=== PATIENT | female | born 1945 | race African-American/Black ===

== ENCOUNTER 2023-02-18 12:23 | Emergency (ER) | payer MEDICARE ==
[~2023-02-18] VITALS: Ht 160 cm; Wt 80.7 kg
[2023-02-18] MEDS ORDERED: ACETAMINOPHEN ES 500 MG TABLET ONE (12:44)
[2023-02-18] MEDS ORDERED: ACETAMINOPHEN ES 500 MG TABLET PO ONE (13:00)
[2023-02-18 15:06] VITALS: BP 100/72; TEMP 98.1; O2SAT 100
== END 2023-02-18 15:07 | disposition home or self-care (01) ==
LOC: ER 12:49
DX: S00.03XA Contusion of scalp, initial encounter (principal); I10 Essential (primary) hypertension; K21.9 Gastro-esophageal reflux disease without esophagitis; E11.9 Type 2 diabetes mellitus without complications; Z98.890 Other specified postprocedural states; Z60.2 Problems related to living alone; Z88.1 Allergy status to other antibiotic agents; W22.8XXA Striking against or struck by other objects, initial encounter; Y93.89 Activity, other specified; Y92.89 Other specified places as the place of occurrence of the external cause; Y99.8 Other external cause status
CPT/HCPCS: 70450-TC